=== PATIENT | female | born 1945 | race Caucasian/White ===

== ENCOUNTER 2023-09-26 07:49 | Emergency (ER) | payer MEDICARE, OTHER, SELFPAY ==
[2023-09-26 07:54] VITALS: BP 133/93
--- NOTE | 2023-09-26 08:12 | ED.GENMED ---
History of Present Illness
General
Chief Complaint: Fall
Time Seen by Provider: 09/26/23 08:12
Travel History
Have you had any contact with someone who has COVID-19?: No
Do you have any symptoms of coronavirus? Fever > 100 degrees, chills, cough, shortness of breath, sore throat, loss of taste or smell, muscle aches, or headache?: No
History of Present Illness
History of Present Illness:
HPI: The patient states she was getting up out of her recliner last night and lost her balance and fell. She lives alone. She had pain at the left humeral region. She denies head injury and denies neck trauma. However, the patient's son says
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
EXAM:
GENERAL: Well appearing in no distress, initial vital signs are relatively unremarkable
HEENT: Moist oral mucosa
NECK: No midline C-spine tenderness
HEAD: No evidence of craniofacial trauma
CARDIOVASCULAR: No murmurs, normal heart rate and rhythm, No chest wall tenderness
PULMONARY: No respiratory distress, breath sounds are clear and equal
ABDOMEN: Soft with no peritoneal signs, no tenderness
NEUROLOGIC: Excellent strength all extremities, no coordination deficits
PSYCHIATRIC: Appropriate mental status, normal insight and judgement
EXTREMITIES: Nontender, no edema, moves all extremities equally
SKIN: No rash, no lesions
ED COURSE:
8:10 AM: I initially evaluated patient
NUMBER AND COMPLEXITY OF PROBLEMS ADDRESSED AT THE ENCOUNTER
� Chronic conditions affecting care: Ovarian cancer, hypothyroidism, high blood pressure
� Acute Exacerbation and/or Progression of Chronic Illness: This is an acute problem, she does not normally fall
� Differential Diagnosis includes: Rhabdomyolysis, left proximal upper extremity contusion, left upper extremity fracture, CHEIKH,
AMOUNT AND/OR COMPLEXITY OF DATA TO BE REVIEWED AND ANALYZED
� I performed an independent evaluation of and my interpretation is:
EKG:
CT: CT imaging personally reviewed and agree with radiologist interpretation
X-rays: I reviewed the left shoulder x-ray, there appears to be a cortical culture prescription at the proximal left humerus
Laboratory Studies: Minimal elevation of CK but not can with significant rhabdomyolysis, creatinine normal, CBC unremarkable
Other:
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 No surrounding vasogenic edema. No acute infarct or mass. Severe microangiopathy'. The note from Dr. 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
angiopathy'
� Clinical information was obtained by an independent historian: I spoke to son at bedside
� Prescriptions/Medications Considered but not given:
� Further testing considered but not performed:
RISK OF COMPLICATIONS AND/OR MORBIDITY OR MORTALITY OF PATIENT MANAGEMENT
� Social determinants of health affecting care: Family has already been working on having [facility] care for her at home
� Discussion with other providers: Asked physical therapy for evaluation at 10 AM
� Escalation of care including admission/observation vs risk of discharge considered: The patient adamantly denied striking her head. Although she does have a history of at least questionable dementia, she seemed to be a fairly
reliable historian. There is no evidence of craniofacial trauma to suggest recent head trauma. Given the abnormal MRI as an outpatient, CT of the brain was obtained and personally reviewed. The patient has no headache and there is no change in
her neurologic status according to family. Family feels she is safe to return at home however given the new fracture of the shoulder, will have PT evaluate. Physical therapy evaluated patient at 10:20 AM and feels that the patient cannot safely
stay at home by herself. Will consult care management�I did speak to Shasta at 10:30 AM. Ultimately, the patient was accepted at [facility] and the family will drive her there now.
Phy Exam
Physical Exam
Physical Exam:
See HPI
Course
Orders/Labs/Results
Orders:
Orders
09/26/23 07:58
Shoulder, Left, Trauma CR [CR Shoulder, Trauma - Left] Urgent
Comment:
Reason For Exam: fall, pain left upper arm.
09/26/23 08:26
0.9% Sodium Chloride 500 ml [Nss] 500 ml IV BOLUS
09/26/23 08:30
CT Head W/o Iv Contrast Urgent
Comment:
Reason For Exam: fall; was told had recent 'brain bleed' by MRI
09/26/23 08:35
Basic Metabolic Panel Urgent
Complete Blood Count/With Diff Urgent
Creatine [Creatine Phosphokinase] Urgent
09/26/23 08:44
Sling Left-Treatment ONCE
09/26/23 09:51
Physical Therapy Consult [Pt Eval And Treat] Urgent
Activity Level: Ambulate
09/26/23 10:30
Case Management Consult ONCE
Case Management Consult: Other
Abnormal Lab Results
09/26/23
08:35
RBC 4.00 L 10^6/uL
(4.20-5.40)
MCH 34.5 H pg
(27.0-31.0)
Absolute Neuts (auto) 6.7 H 10^3/uL
(1.4-6.5)
Absolute Lymphs (auto) 0.7 L 10^3/uL
(1.2-3.4)
Neutrophils % 83.4 H %
(42.2-75.2)
Lymphocytes % 8.8 L %
(20.5-51.1)
BUN 19 H mg/dl
(7-17)
Glucose 129 H mg/dl
(70-99)
Creatine Kinase 280 H U/L
(30-135)
09/26/23 08:35
09/26/23 08:35
Vital Signs
Initial and Last Documented VS:
Initial Vital Signs
Temp Pulse Resp BP Pulse Ox
97.7 F 83 20 133/93 97
09/26/23 07:54 09/26/23 07:54 09/26/23 07:54 09/26/23 07:54 09/26/23 07:54
Last Documented Vital Signs
Temp Pulse Resp BP Pulse Ox
97.7 F 83 20 118/88 97
09/26/23 07:54 09/26/23 07:54 09/26/23 07:54 09/26/23 12:00 09/26/23 12:00
*Critical Care Note
Total Time (30-74mins, 75-104mins- exclusive of procedures): Not Applicable
ED Attending Note
-
Portions of this chart may have been created with voice recognition software.� Occasional wrong word or��sound alike� substitutions may have occurred due to the inherent limitations of voice recognition software.
Discharge Plan
Departure
Patient Disposition: Correction/SNF
Date of Disposition: 09/26/23
Time of Disposition: 14:09
Discharge Problem:
Fracture of proximal end of humerus
Instructions: Shoulder Fracture (DC)
Prescriptions:
No Action
donepezil 5 mg Tablet
10 mg PO HS
levothyroxine 50 mcg Tablet
50 mcg PO DAILY
lisinopril 10 mg Tablet
10 mg PO DAILY
Rx Instructions:
09/26/2023, take with 5 mg for a total of 15 mg.
lisinopril 5 mg Tablet
5 mg PO DAILY
Rx Instructions:
09/26/2023, take with 10 mg for a total of 15 mg.
metoprolol succinate 25 mg Tablet Extended Release 24 Hr
25 mg PO HS
Tylenol
3 tab PO BIDPRN PRN (Reason: mild pain)
Referrals:
Cutting,Ruba, JOAN [Family Provider] -
Dave Torrez MD [Active] - Follow up in 2-3 days
Activity Restrictions/Additional Instructions:
Regarding the fracture of the shoulder, I do not suspect that they will be doing any sort of surgery as it appears relatively minor however I would like you to follow-up with an orthopedist such as Dr. Torrez. Return here if worse. Tylenol is
safest for pain.
Interventions
Interventions:
ED- Fall Risk Assessment Last Done: 09/26/23 08:23
*ED COVID-19 Vaccine History Last Done: 09/26/23 08:21
*Nursing Disposition Last Done: 09/26/23 14:37
ED-Musculoskeletal Assessment Last Done: 09/26/23 08:22
ED- Neurological Assessment Last Done: 09/26/23 08:22
ED-Skin Assessment Last Done: 09/26/23 08:22
Discharge Date and Time
Discharge Date/Time: 09/26/23 14:39
[2023-09-26] MEDS: NSS 500 IV (08:38)
[2023-09-26 08:55] LABS: % Basophils 0.2 % (0-2); % Immature Granulocytes 0.4 % (0-0.5); % Lymphocytes 8.8 % (20.5-51.1); % Monocytes 7.2 % (1.7-9.3); % Neutrophils 83.4 % (42.2-75.2); Absolute Lymphocytes 0.7 10^3/uL (1.2-3.4); Absolute Monocytes 0.6 10^3/uL (0.1-0.6); Absolute Neutrophils 6.7 10^3/uL (1.4-6.5); Hematocrit 39.6 % (37.0-47.0); Hemoglobin 13.8 g/dL (12.0-16.0); Mean Corp Hgb Conc. 34.8 g/dL (33.0-37.0); Mean Corpuscular Hgb 34.5 pg (27.0-31.0); Mean Platelet Volume 9.9 fL (7.4-10.4); Nucleated Red Blood Cells % 0 %; Platelet Count 179 10^3/uL (130-400); White Blood Cell Count 8.1 10^3/uL (4.8-10.8)
[2023-09-26 09:12] LABS: Blood Urea Nitrogen 19 mg/dl (7-17); Calcium 10.2 mg/dl (8.4-10.2); Carbon Dioxide 27 mmol/L (22-30); Chloride 104 mmol/L (98-107); Creatine Phosphokinase 280 U/L (30-135); Glucose 129 mg/dl (70-99); Potassium 4.2 mmol/L (3.5-5.1); Sodium 135 mmol/L (135-145); eGFR > 60.00
[2023-09-26 10:00] VITALS: BP 137/89
--- NOTE | 2023-09-26 10:42 | CM ---
Addendum entered by Shasta Randolph RN 09/26/23 13:37:
Family is agreeable to [facility]. CM updated Shweta at and she will call to discuss private pay options.
Addendum entered by Shasta Randolph RN 09/26/23 13:14:
CM offered [facility] [place], but family feels like it is too far away. CM will continue to follow up with [facility] and [facility].
Addendum entered by Shasta Randolph RN 09/26/23 12:54:
Patient's son is now agreeable to referrals to be sent. CM sent referrals to [facility], [facility], [facility]. CM updated Shweta admission coordinator at [facility] and [facility] to see if they can assist.
Addendum entered by Shasta Randolph RN 09/26/23 11:03:
CM spoke with patient's son who is now calling his county contacts to see if they can escalate patient's admission to [facility]. Son is refusing CM to send clinical referrals at this time.
Original Note:
CM met with patient in room. CM briefly discussed discharge planning options. CM will await arrival of patient's son to discuss discharge planning.
[2023-09-26 11:00] VITALS: BP 133/79
[2023-09-26 12:00] VITALS: BP 118/88
--- NOTE | 2023-09-26 14:01 | CM ---
Addendum entered by Shasta Randolph RN 09/26/23 18:07:
CM spoke with Willy to updated that David has requested information to be sent to [facility] for transfer from [facility]. Willy is in agreement with plan. He stated that his 'contacts' at [facility] returned his call at 1600 and
that's why he wants her transferred. CM advised that they will have to work with [facility] to have her transferred to [facility].
Willy expressed understanding.
CM updated CM director.
Addendum entered by Shasta Randolph RN 09/26/23 17:33:
CM sent referral via [facility] to [facility].
Addendum entered by Shasta Randolph RN 09/26/23 17:32:
David is currently not listed as a contact on the medical records.
Addendum entered by Shasta Randolph RN 09/26/23 17:29:
Patient's son David presented to emergency room waiting room asking for CM. David advised that he wants patient to be transferred to [facility]. He has not spoken with [facility] regarding this request. CM will send referral to [facility] and [facility] will follow up with referral.
Shweta from [facility] is aware
Addendum entered by Shasta Randolph RN 09/26/23 14:38:
Patient's family will transport patient.
Original Note:
Patient has been accepted to [facility]
Report
[phone]
== END 2023-09-26 14:39 ==
LOC: EMR 07:49
PROVIDERS: EMERGENCY PHYSICIAN Emergency Medicine; FAMILY PHYSICIAN Registered Nurse
DX: S42.202A Unspecified fracture of upper end of left humerus, initial encounter for closed fracture (principal); W19.XXXA Unspecified fall, initial encounter; E03.9 Hypothyroidism, unspecified; C56.9 Malignant neoplasm of unspecified ovary
CPT/HCPCS: 99284; 96360; 70450; 73030; 80048; 82550; 85025

== ENCOUNTER → 2023-10-25 14:24 | Outpatient (REF) | payer MEDICARE, OTHER, SELFPAY ==
[2023-10-25 14:18] LABS: % Basophils 0.4 % (0-2); % Eosinophils 0.8 % (0-6); % Monocytes 9.4 % (1.7-9.3); % Neutrophils 61.4 % (42.2-75.2); Absolute Lymphocytes 1.5 10^3/uL (1.2-3.4); Absolute Monocytes 0.5 10^3/uL (0.1-0.6); Absolute Neutrophils 3.3 10^3/uL (1.4-6.5); Hematocrit 39.6 % (37.0-47.0); Hemoglobin 13.3 g/dL (12.0-16.0); Mean Corp Hgb Conc. 33.6 g/dL (33.0-37.0); Mean Corpuscular Volume 101.3 fL (81.0-99.0); Mean Platelet Volume 9.9 fL (7.4-10.4); Platelet Count 206 10^3/uL (130-400); Red Blood Cell Count 3.91 10^6/uL (4.20-5.40); White Blood Cell Count 5.3 10^3/uL (4.8-10.8)
[2023-10-25 15:19] LABS: ALT (SGPT) 58 U/L (0-35); AST (SGOT) 44 U/L (14-36); Albumin 4.2 g/dl (3.5-5.0); Alkaline Phosphatase 167 U/L (38-126); Blood Urea Nitrogen 18 mg/dl (7-17); Calcium 10.5 mg/dl (8.4-10.2); Carbon Dioxide 26 mmol/L (22-30); Chloride 104 mmol/L (98-107); Glucose 81 mg/dl (70-99); Potassium 4.6 mmol/L (3.5-5.1); Sodium 135 mmol/L (135-145); Total Bilirubin 0.9 mg/dl (0.2-1.3); Total Protein 7.1 g/dl (6.3-8.2); eGFR > 60.00
== END ==
LOC: OIDL 14:24
PROVIDERS: ATTENDING PHYSICIAN Internal Medicine Hematology & Oncology
DX: C78.6 Secondary malignant neoplasm of retroperitoneum and peritoneum (principal); C56.9 Malignant neoplasm of unspecified ovary
CPT/HCPCS: 80053; 85025; 86304

== ENCOUNTER → 2023-11-22 13:25 | Outpatient (REF) | payer MEDICARE, OTHER, SELFPAY | LOC: RAD 13:25 | PROVIDERS: ATTENDING PHYSICIAN Internal Medicine Hematology & Oncology; FAMILY PHYSICIAN Family Medicine | DX: C78.6 Secondary malignant neoplasm of retroperitoneum and peritoneum (principal); C56.9 Malignant neoplasm of unspecified ovary | CPT/HCPCS: 71260; 74177; Q9967 ==